=== PATIENT | male | born 1945 | race American Indian/Alaskan Native ===

== ENCOUNTER 2017-07-06 03:20 | Inpatient (IN) | payer MEDICARE ==
[2017-07-06] MEDS ORDERED: NACL 0.9% 1000 ML 1,000 ML IV ONE (03:35)
[2017-07-06 05:38] LABS: Basophils % (Auto) 0.3 % (0.0-1.8); Hematocrit 27.7 % (35.5-45.6); Hemoglobin 9.6 gm/dl (11.8-15.2); Lymphocytes # (Auto) 1.4 K/mm3 (1.2-5.4); Lymphocytes % (Auto) 14.5 % (13.4-35.0); Mean Corpuscular HGB Conc 35 % (32-34); Mean Corpuscular Hemoglobin 34 pg (28-32); Mean Corpuscular Volume 98 fl (84-94); Monocytes # (Auto) 0.3 K/mm3 (0.0-0.8); Monocytes % (Auto) 3.5 % (0.0-7.3); Platelet Count 161 K/mm3 (140-440); Red Blood Count 2.83 M/mm3 (3.65-5.03); Red Cell Distribution Width 13.2 % (13.2-15.2)
[2017-07-06 05:49] LABS: INR 3.32 (0.87-1.13)
[2017-07-06 05:50] LABS: Partial Thromboplastin Time 59.2 Sec. (24.2-36.6)
[2017-07-06 05:55] LABS: Albumin 3.6 g/dL (3.9-5)
--- NOTE | 2017-07-06 10:58 | Emergency Department Report ---
ED GI Bleed HPI - General Chief complaint: GI Bleed Stated complaint: POSS GI BLEED Time Seen by Provider: 07/06/17 10:16 Source: EMS Mode of arrival: Stretcher Limitations: Other (patient is nonverbal.) - History of Present Illness MD complaint: other (Black stool) -: unknown Radiation: none Severity scale (0 -10): 0 Quality: painless Improves with: none Worsens with: none Context: blood thinners Associated Symptoms: nausea, vomiting Treatments Prior to Arrival: none - Related Data Home Medications Medication Instructions Recorded Confirmed Last Taken Esomeprazole Magnesium [Nexium] 20 mg PO QAM 07/06/17 07/06/17 Unknown Sennosides [Senna] 17.2 mg PO QHS 07/06/17 07/06/17 Unknown Vit B Comp No.3/Folic/C/Biotin 1 each PO DAILY 07/06/17 07/06/17 Unknown [Nephro-Gabriel Rx Tablet] Warfarin Sodium [Coumadin] 7 mg PO QHS 07/06/17 07/06/17 Unknown Allergies Allergy/AdvReac Type Severity Reaction Status Date / Time No Known Allergies Allergy Verified 06/11/15 23:17 ED Review of Systems ROS: Stated complaint: POSS GI BLEED Other details as noted in HPI Comment: Unobtainable due to pts medical conditions (patient is nonverbal.) ED Past Medical Hx - Past Medical History Hx Hypertension: Yes Hx Deep Vein Thrombosis: No Hx Renal Disease: Yes (CKD) Hx Arthritis: Yes (GOUT) Hx Psychiatric Treatment: Yes (ANXIETY) Hx HIV: No Additional medical history: Enlarged prostate, ICH, GERD, STAGE 4 ULCER [place], V FIB, BUTTOCK PRESSURE ULCERS, APHASIA, UTI, ARF, BPH - Surgical History Past Surgical History?: Yes Hx Pacemaker: No Hx Internal Defibrillator: No Additional Surgical History: Gastrostomy, ileostomy - Social History Smoking Status: Never Smoker Substance Use Type: None - Medications Home Medications: Home Medications Medication Instructions Recorded Confirmed Last Taken Type Esomeprazole Magnesium [Nexium] 20 mg PO QAM 07/06/17 07/06/17 Unknown History Sennosides [Senna] 17.2 mg PO QHS 07/06/17 07/06/17 Unknown History Vit B Comp No.3/Folic/C/Biotin 1 each PO DAILY 07/06/17 07/06/17 Unknown History [Nephro-Gabriel Rx Tablet] Warfarin Sodium [Coumadin] 7 mg PO QHS 07/06/17 07/06/17 Unknown History ED Physical Exam - General Limitations: No Limitations General appearance: alert, in no apparent distress - Head Head exam: Present: atraumatic, normocephalic, normal inspection - Eye Eye exam: Present: EOMI, scleral icterus Pupils: Present: normal accommodation - ENT ENT exam: Present: normal exam - Neck Neck exam: Present: normal inspection, full ROM - Respiratory Respiratory exam: Present: normal lung sounds bilaterally - Cardiovascular Cardiovascular Exam: Present: regular rate, normal heart sounds - GI/Abdominal GI/Abdominal exam: Present: soft, other (colostomy bag is full of black stool). Absent: tenderness, guarding, rebound - Rectal Rectal exam: Present: deferred - Extremities Exam Extremities exam: Present: normal inspection, full ROM, normal capillary refill - Back Exam Back exam: Present: full ROM - Neurological Exam Neurological exam: Present: alert - Psychiatric Psychiatric exam: Present: normal affect - Skin Skin exam: Present: warm, dry, other (Stage 4 sacral decubitus ulcer.) ED Course Vital Signs 07/06/17 07/06/17 07/06/17 04:01 04:15 04:16 Temperature 97.7 F Pulse Rate 94 H Respiratory 16 16 Rate Blood Pressure 116/65 Blood Pressure 116/65 [Right] O2 Sat by Pulse 99 99 Oximetry 07/06/17 07/06/17 07/06/17 04:30 05:00 05:30 Temperature Pulse Rate 94 H Respiratory 26 H 21 16 Rate Blood Pressure 119/67 119/67 119/67 Blood Pressure [Right] O2 Sat by Pulse 100 100 96 Oximetry 07/06/17 07/06/17 07/06/17 06:00 06:30 07:30 Temperature Pulse Rate 80 95 H Respiratory 13 16 15 Rate Blood Pressure 125/60 100/42 116/56 Blood Pressure [Right] O2 Sat by Pulse 95 Oximetry 07/06/17 07/06/17 07/06/17 08:00 08:30 09:00 Temperature Pulse Rate 103 H Respiratory 18 14 20 Rate Blood Pressure 124/62 121/64 121/64 Blood Pressure [Right] O2 Sat by Pulse 71 L Oximetry 05/11/18 05/11/18 05/11/18 09:30 10:30 11:00 Temperature Pulse Rate 90 Respiratory 18 Rate Blood Pressure 126/63 133/53 138/55 Blood Pressure [Right] O2 Sat by Pulse Oximetry 07/06/17 07/06/17 07/06/17 11:30 12:00 12:30 Temperature Pulse Rate Respiratory 16 20 14 Rate Blood Pressure 135/49 108/82 129/60 Blood Pressure [Right] O2 Sat by Pulse Oximetry 07/06/17 13:01 Temperature Pulse Rate Respiratory 13 Rate Blood Pressure 129/64 Blood Pressure [Right] O2 Sat by Pulse Oximetry - Reevaluation(s) Reevaluation #1: 07/06/17 12:13 I consulted the [employer] hand compensation and benefits analyst Dr. Armando. He wants patient admitted to medicine. He wants patient kept nothing by mouth and 2 units of FFP given. He will come in and evaluated the patient later today. Reevaluation #2: 07/06/17 13:11 I discussed patient with the hospitalist on-call Dr. Sierra. He will admit patient to the hospital for further evaluation and management. ED Medical Decision Making - Lab Data Result diagrams: 07/06/17 05:10 07/06/17 05:10 - EKG Data -: EKG Interpreted by Me EKG shows normal: sinus rhythm Rate: normal - EKG Data When compared to previous EKG there are: previous EKG unavailable Interpretation: nonspecific ST-T wave meredith, LVH 07/06/17 10:58 RBBB, LPFB, First degree heart block. - Radiology Data Radiology results: report reviewed Critical care attestation.: If time is entered above; I have spent that time in minutes in the direct care of this critically ill patient, excluding procedure time. ED Disposition Clinical Impression: Coagulopathy, Supratherapeutic INR, Anemia due to acute blood loss GI bleed Qualifiers: GI bleed type/associated pathology: unspecified gastrointestinal hemorrhage type Qualified Code(s): K92.2 - Gastrointestinal hemorrhage, unspecified Hypotension Qualifiers: Hypotension type: other hypotension type Qualified Code(s): I95.89 - Other hypotension Disposition: OP ADMIT IP TO THIS HOSP Is pt being admited?: Yes Does the pt Need Aspirin: No Condition: Stable Referrals: PRIMARY CARE,MD [Primary Care Provider] - 3-5 Days Forms: Accompanied Note Time of Disposition: 12:13
[2017-07-06] MEDS ORDERED: PROTONIX IV ONE (11:10)
[2017-07-06] MEDS ORDERED: NACL 0.9% 500 ML 500 ML IV ONE (11:48)
[2017-07-06] MEDS ORDERED: PROTONIX 80 MG in NACL 0.9% 100 ML IV SCH (12:00)
--- NOTE | 2017-07-06 15:34 | Gastroenterology Consultation ---
History of Present Illness - Reason for Consult Consult date: 07/06/17 GI bleeding Requesting physician: BRIANA SAUCEDO - History of Present Illness The patient is a 72 year old man for whom consultation was requested for GI bleeding. He has been on warfarin for uncertain reasons as the history is limited due to his severe expressive aphasia. His INR was 3.6. The patient is lucid and intimates that he began passing a large amount of black stool in the ileostomy. He denies any pain, nausea or vomiting. The review of the chart reveals he was treated for PUD by Dr. Murray about 2 years ago. He was last admitted her a year ago at which time he had an SBO requiring surgery resulting in an ileostomy. The patient has renal failure and is on HD. Past History Past Medical History: ESRD (On hemodialysis), hypertension, stroke (history of hemorrhagic CVA) Past Surgical History: bowel surgery (Ileostomy in 2017 for SBO) Social history: denies: smoking, alcohol abuse Family history: other (Unknown.) Medications and Allergies Allergies Allergy/AdvReac Type Severity Reaction Status Date / Time No Known Allergies Allergy Verified 06/11/15 23:17 Home Medications Medication Instructions Recorded Confirmed Last Taken Type Esomeprazole Magnesium [Nexium] 20 mg PO QAM 07/06/17 07/06/17 Unknown History Sennosides [Senna] 17.2 mg PO QHS 07/06/17 07/06/17 Unknown History Vit B Comp No.3/Folic/C/Biotin 1 each PO DAILY 07/06/17 07/06/17 Unknown History [Nephro-Gabriel Rx Tablet] Warfarin Sodium [Coumadin] 7 mg PO QHS 07/06/17 07/06/17 Unknown History Active Meds: Active Medications Pantoprazole Sodium 80 mg/ (Sodium Chloride) 100 mls @ 10 mls/hr IV DIRECT ARTIS Review of Systems - Review of Systems ROS unobtainable: due to mental status (Unable to speak due to CVA with a dense expressive aphasia, although lucid) Exam - Constitutional Vital Signs: Temp Pulse Resp BP Pulse Ox 98.3 F 93 H 21 137/66 99 07/06/17 15:18 07/06/17 15:18 07/06/17 15:18 07/06/17 15:18 07/06/17 15:18 General appearance: no acute distress, well-nourished - EENT Eyes: PERRL ENT: hearing intact, clear oral mucosa - Neck Neck: supple, normal ROM, no masses or JVD - Respiratory Respiratory effort: normal Respiratory: bilateral: CTA - Breasts Breasts: deferred - Cardiovascular Rhythm: regular Heart Sounds: Present: S1 & S2. Absent: gallop, rub Extremities: pulses intact, No edema, normal color, Full ROM, abnormal (Left arm AV shunt) - Gastrointestinal General gastrointestinal: Present: soft, non-tender, non-distended, normal bowel sounds, other (Long midline scar. Ileostomy in RLQ with black stool present.). Absent: hepatomegaly, splenomegaly Rectal Exam: deferred - Genitourinary Male Genitourinary: deferred - Integumentary Integumentary: Present: clear, warm, dry - Neurologic Neurological: alert and oriented x3 - Psychiatric Psychiatric: appropriate mood/affect, intact judgment & insight, memory intact - Labs CBC & Chem 7: 07/06/17 05:10 07/06/17 05:10 Lab Results: Laboratory Results - last 24 hr 07/06/17 07/06/17 07/06/17 05:10 05:10 05:10 WBC 9.6 RBC 2.83 L Hgb 9.6 L Hct 27.7 L MCV 98 H MCH 34 H MCHC 35 H RDW 13.2 Plt Count 161 Lymph % (Auto) 14.5 [place] % (Auto) 3.5 Eos % (Auto) 0.0 Baso % (Auto) 0.3 Lymph # 1.4 [place] # 0.3 Eos # 0.0 Baso # 0.0 Seg Neutrophils % 81.7 H Seg Neutrophils # 7.8 H PT 36.1 H INR 3.32 H APTT 59.2 H Sodium 138 Potassium 5.0 Chloride 96.1 L Carbon Dioxide 26 Anion Gap 21 BUN 49 H Creatinine 3.7 H Estimated GFR 20 BUN/Creatinine Ratio 13 Glucose 145 H Calcium 9.0 Total Bilirubin 0.50 AST 16 ALT 12 Alkaline Phosphatase 84 Total Protein 6.6 Albumin 3.6 L Albumin/Globulin Ratio 1.2 Lipase 35 Blood Type Antibody Screen 07/06/17 05:10 WBC RBC Hgb Hct MCV MCH MCHC RDW Plt Count Lymph % (Auto) [place] % (Auto) Eos % (Auto) Baso % (Auto) Lymph # [place] # Eos # Baso # Seg Neutrophils % Seg Neutrophils # PT INR APTT Sodium Potassium Chloride Carbon Dioxide Anion Gap BUN Creatinine Estimated GFR BUN/Creatinine Ratio Glucose Calcium Total Bilirubin AST ALT Alkaline Phosphatase Total Protein Albumin Albumin/Globulin Ratio Lipase Blood Type O POSITIVE Antibody Screen Negative Assessment and Plan - Patient Problems (1) Anemia due to acute blood loss Current Visit: Yes Status: Acute (2) Coagulopathy Current Visit: Yes Status: Acute Plan to address problem: On coumadin (3) GI bleed Current Visit: Yes Status: Acute Qualifiers: GI bleed type/associated pathology: unspecified gastrointestinal hemorrhage type Qualified Code(s): K92.2 - Gastrointestinal hemorrhage, unspecified Plan to address problem: Will need EGD once INR decreases. FFP has been ordered by ER MD.His H&H is good and will be followed. He is hemodynamically stable at present. Keep NPO today. F/u PT/INR (4) Supratherapeutic INR Current Visit: Yes Status: Acute (5) Diabetes mellitus type 2 in nonobese Current Visit: No Status: Chronic (6) Expressive aphasia Current Visit: No Status: Chronic (7) History of intracranial hemorrhage Current Visit: No Status: Chronic
[2017-07-06 19:55] LABS: Hematocrit 26.4 % (35.5-45.6); Hemoglobin 8.9 gm/dl (11.8-15.2)
--- NOTE | 2017-07-06 21:41 | History and Physical Report ---
History of Present Illness Date of examination: 07/06/17 Date of admission: 07/06/17 13:13 Chief complaint: Chief complaint: Back stools in his ileostomy bag -one day History of present illness: History of Present Illness: 72-year-old -[place] male with history of cerebrovascular accident and aphasia comes in for large amount of black stool in his ileostomy bag. Positive for blood. His INR was 3.6 denies any pain nausea vomiting. Patient was here for vertigo symptoms disease by Dr. Murray 2 years ago patient. He also had a small bowel obstruction requiring surgery resulting in ileostomy. Patient is also on hemodialysis. No fever no chills. Past Medical History: ESRD (On hemodialysis), hypertension, stroke (history of hemorrhagic CVA) Past Surgical History: bowel surgery (Ileostomy in 2017 for SBO) Social history: denies: smoking, alcohol abuse Family history: other (Unknown.) Medications and Allergies Allergies Allergy/AdvReac Type Severity Reaction Status Date / Time No Known Allergies Allergy Verified 06/11/15 23:17 Home Medications Medication Instructions Recorded Confirmed Last Taken Type Esomeprazole Magnesium [Nexium] 20 mg PO QAM 07/06/17 07/06/17 Unknown History Sennosides [Senna] 17.2 mg PO QHS 07/06/17 07/06/17 Unknown History Vit B Comp No.3/Folic/C/Biotin 1 each PO DAILY 07/06/17 07/06/17 Unknown History [Nephro-Gabriel Rx Tablet] Warfarin Sodium [Coumadin] 7 mg PO QHS 07/06/17 07/06/17 Unknown History Active Meds: Active Medications Pantoprazole Sodium 80 mg/ (Sodium Chloride) 100 mls @ 10 mls/hr IV DIRECT ARTIS Review of Systems - Review of Systems ROS unobtainable: due to mental status (Unable to speak due to CVA with a dense expressive aphasia, although lucid) Past History Past Medical History: ESRD (On hemodialysis), hypertension, stroke (history of hemorrhagic CVA) Past Surgical History: bowel surgery (Ileostomy in 2017 for SBO) Social history: denies: smoking, alcohol abuse Family history: other (Unknown.) Medications and Allergies Allergies Allergy/AdvReac Type Severity Reaction Status Date / Time No Known Allergies Allergy Verified 06/11/15 23:17 Home Medications Medication Instructions Recorded Confirmed Last Taken Type Esomeprazole Magnesium [Nexium] 20 mg PO QAM 07/06/17 07/06/17 Unknown History Sennosides [Senna] 17.2 mg PO QHS 07/06/17 07/06/17 Unknown History Vit B Comp No.3/Folic/C/Biotin 1 each PO DAILY 07/06/17 07/06/17 Unknown History [Nephro-Gabriel Rx Tablet] Warfarin Sodium [Coumadin] 7 mg PO QHS 07/06/17 07/06/17 Unknown History Active Meds: Active Medications Pantoprazole Sodium 80 mg/ (Sodium Chloride) 100 mls @ 10 mls/hr IV DIRECT ARTIS Last Admin: 07/06/17 13:50 Dose: 8 mg/hr, 10 mls/hr Exam - Constitutional Vitals: Temp Pulse Resp BP Pulse Ox 97.9 F 94 H 18 130/49 99 07/06/17 20:05 07/06/17 20:05 07/06/17 20:05 07/06/17 20:05 07/06/17 20:05 General appearance: Present: no acute distress, well-nourished - EENT Eyes: Present: PERRL ENT: hearing intact, clear oral mucosa - Neck Neck: Present: supple, normal ROM - Respiratory Respiratory effort: normal Respiratory: bilateral: CTA - Cardiovascular Heart rate: 80 Rhythm: regular Heart Sounds: Present: S1 & S2. Absent: rub, click - Extremities Extremities: no ischemia, pulses intact, pulses symmetrical, No edema Peripheral Pulses: within normal limits - Abdominal General gastrointestinal: Present: soft, non-tender, non-distended, normal bowel sounds, other (ileostomy bag in place) Male genitourinary: Present: normal - Rectal Rectal Exam: deferred - Integumentary Integumentary: Present: clear, warm, dry - Musculoskeletal Musculoskeletal: gait normal, strength equal bilaterally - Psychiatric Psychiatric: appropriate mood/affect, intact judgment & insight - Neurologic Neurologic: CNII-XII intact, moves all extremities - Allied Health Allied health notes reviewed: nursing, case management Results - Labs CBC & Chem 7: 07/06/17 19:24 07/06/17 05:10 Labs: Laboratory Last Values WBC 9.6 K/mm3 (4.5-11.0) 07/06/17 05:10 RBC 2.83 M/mm3 (3.65-5.03) L 07/06/17 05:10 Hgb 8.9 gm/dl (11.8-15.2) L 07/06/17 19:24 Hct 26.4 % (35.5-45.6) L 07/06/17 19:24 MCV 98 fl (84-94) H 07/06/17 05:10 MCH 34 pg (28-32) H 07/06/17 05:10 MCHC 35 % (32-34) H 07/06/17 05:10 RDW 13.2 % (13.2-15.2) 07/06/17 05:10 Plt Count 161 K/mm3 (140-440) 07/06/17 05:10 Lymph % (Auto) 14.5 % (13.4-35.0) 07/06/17 05:10 [place] % (Auto) 3.5 % (0.0-7.3) 07/06/17 05:10 Eos % (Auto) 0.0 % (0.0-4.3) 07/06/17 05:10 Baso % (Auto) 0.3 % (0.0-1.8) 07/06/17 05:10 Lymph # 1.4 K/mm3 (1.2-5.4) 07/06/17 05:10 [place] # 0.3 K/mm3 (0.0-0.8) 07/06/17 05:10 Eos # 0.0 K/mm3 (0.0-0.4) 07/06/17 05:10 Baso # 0.0 K/mm3 (0.0-0.1) 07/06/17 05:10 Seg Neutrophils % 81.7 % (40.0-70.0) H 07/06/17 05:10 Seg Neutrophils # 7.8 K/mm3 (1.8-7.7) H 07/06/17 05:10 PT 36.1 Sec. (12.2-14.9) H 07/06/17 05:10 INR 3.32 (0.87-1.13) H 07/06/17 05:10 APTT 59.2 Sec. (24.2-36.6) H 07/06/17 05:10 Sodium 138 mmol/L (137-145) 07/06/17 05:10 Potassium 5.0 mmol/L (3.6-5.0) 07/06/17 05:10 Chloride 96.1 mmol/L (98-107) L 07/06/17 05:10 Carbon Dioxide 26 mmol/L (22-30) 07/06/17 05:10 Anion Gap 21 mmol/L 07/06/17 05:10 BUN 49 mg/dL (9-20) H 07/06/17 05:10 Creatinine 3.7 mg/dL (0.8-1.5) H 07/06/17 05:10 Estimated GFR 20 ml/min 07/06/17 05:10 BUN/Creatinine Ratio 13 % 07/06/17 05:10 Glucose 145 mg/dL (75-100) H 07/06/17 05:10 Calcium 9.0 mg/dL (8.4-10.2) 07/06/17 05:10 Total Bilirubin 0.50 mg/dL (0.1-1.2) 07/06/17 05:10 AST 16 units/L (5-40) 07/06/17 05:10 ALT 12 units/L (7-56) 07/06/17 05:10 Alkaline Phosphatase 84 units/L (35-129) 07/06/17 05:10 Total Protein 6.6 g/dL (6.3-8.2) 07/06/17 05:10 Albumin 3.6 g/dL (3.9-5) L 07/06/17 05:10 Albumin/Globulin Ratio 1.2 % 07/06/17 05:10 Lipase 35 units/L (13-60) 07/06/17 05:10 Blood Type O POSITIVE 07/06/17 05:10 Antibody Screen Negative 07/06/17 05:10 Short CBC 07/06/17 07/06/17 Range/Units 05:10 19:24 WBC 9.6 (4.5-11.0) K/mm3 Hgb 9.6 L 8.9 L (11.8-15.2) gm/dl Hct 27.7 L 26.4 L (35.5-45.6) % Plt Count 161 (140-440) K/mm3 BMP 07/06/17 05:10 Sodium 138 Potassium 5.0 Chloride 96.1 L Carbon Dioxide 26 BUN 49 H Creatinine 3.7 H Glucose 145 H Calcium 9.0 Liver Function 07/06/17 Range/Units 05:10 Total Bilirubin 0.50 (0.1-1.2) mg/dL AST 16 (5-40) units/L ALT 12 (7-56) units/L Alkaline Phosphatase 84 (35-129) units/L Albumin 3.6 L (3.9-5) g/dL Assessment and Plan Advance Directives: Yes (full code ) VTE prophylaxis?: Mechanical Plan of care discussed with patient/family: Yes (full code) - Patient Problems (1) GI bleed Current Visit: Yes Status: Acute Qualifiers: GI bleed type/associated pathology: unspecified gastrointestinal hemorrhage type Qualified Code(s): K92.2 - Gastrointestinal hemorrhage, unspecified Plan to address problem: Patient initiated on Protonix drip GI consult requested Hemoglobin and hematocrit every 8 Transfuse as necessary (2) Supratherapeutic INR Current Visit: Yes Status: Acute Plan to address problem: Will hold the Coumadin Vitamin K if necessary (3) End stage renal disease Current Visit: Yes Status: Chronic Plan to address problem: Nephrology consulted for possible dialysis (4) Peptic ulcer disease Current Visit: Yes Status: Chronic Plan to address problem: Continue PPIs after the endoscopy (5) Coagulopathy Current Visit: Yes Status: Acute Plan to address problem: We will hold the Coumadin (6) CVA, old, aphasia Current Visit: Yes Status: Chronic Plan to address problem: Supportive care (7) DVT prophylaxis Current Visit: Yes Status: Acute Plan to address problem: SCDs only
[2017-07-06] MEDS ORDERED: NACL 0.9% 1000 ML 1,000 ML IV SCH (22:00)
[2017-07-06 22:26] LABS: Hematocrit 23.5 % (35.5-45.6)
[2017-07-07 08:34] LABS: Hematocrit 22.6 % (35.5-45.6); Hemoglobin 7.7 gm/dl (11.8-15.2)
[2017-07-07 08:43] LABS: INR 2.36 (0.87-1.13)
[2017-07-07 08:47] LABS: Albumin 3.6 g/dL (3.9-5); Calcium 9.3 mg/dL (8.4-10.2)
--- NOTE | 2017-07-07 09:06 | Gastroenterology Progress Note ---
Assessment and Plan GI: no signs bleeding overnight - follow h/h, transfuse as needed - continue PPI iv - plan EGD in am if INR stable Subjective Date of service: 07/07/17 Interval history: - no signs bleeding overnight. Denies GI complaints Objective - Constitutional Vitals: Temp Pulse Resp BP Pulse Ox 98.4 F 84 18 129/54 100 07/07/17 03:29 07/07/17 03:29 07/07/17 03:29 07/07/17 03:29 07/07/17 03:29 General appearance: no acute distress - EENT Eyes: PERRL - Neck Neck: supple - Respiratory Respiratory: bilateral: CTA, rhonchi, wheezing, other - Cardiovascular Rhythm: regular Heart Sounds: Present: S1 & S2 - Gastrointestinal General gastrointestinal: Present: soft, non-tender, non-distended - Labs CBC & Chem 7: 07/07/17 08:03 07/07/17 08:03 Labs: Laboratory Results - last 24 hr 07/06/17 07/06/17 07/06/17 05:10 19:24 22:05 Hgb 8.9 L 8.0 L Hct 26.4 L 23.5 L PT INR Sodium Potassium Chloride Carbon Dioxide Anion Gap BUN Creatinine Estimated GFR BUN/Creatinine Ratio Glucose Calcium Total Bilirubin AST ALT Alkaline Phosphatase Total Protein Albumin Albumin/Globulin Ratio Blood Type O POSITIVE Antibody Screen Negative 07/07/17 07/07/17 07/07/17 08:03 08:03 08:03 Hgb 7.7 L Hct 22.6 L PT 27.4 H INR 2.36 H Sodium 138 Potassium 3.9 D Chloride 96.9 L Carbon Dioxide 24 Anion Gap 21 BUN 88 H Creatinine 4.7 H Estimated GFR 15 BUN/Creatinine Ratio 19 Glucose 116 H Calcium 9.3 Total Bilirubin 0.80 AST 13 ALT 9 Alkaline Phosphatase 73 Total Protein 6.7 Albumin 3.6 L Albumin/Globulin Ratio 1.2 Blood Type Antibody Screen
--- NOTE | 2017-07-07 09:15 | Progress Note ---
Assessment and Plan Assessment and plan: 72-year-old -U[place]and[place] male with history of cerebrovascular accident and aphasia comes in for large amount of black stool in his ileostomy bag. Positive for blood. His INR was 3.6 denies any pain nausea vomiting. Patient was here for vertigo symptoms disease by Dr. Murray 2 years ago patient. He also had a small bowel obstruction requiring surgery resulting in ileostomy. Patient is also on hemodialysis. No fever no chills. upper GI bleed Patient initiated on Protonix drip GI consult rappreciated, planned for EGD in am Hemoglobin and hematocrit every 8 Transfuse as necessary Supratherapeutic INR Will hold the Coumadin Vitamin K if necessary End stage renal disease Nephrology consulted for possible dialysis Peptic ulcer disease Continue PPIs after the endoscopy Coagulopathy due to meds We will hold the Coumadin Acute blood loss anemia monitor, transfuse to keep hg above 7 hx of CVA, old, aphasia Supportive care DVT prophylaxis SCDs only History Interval history: still has dark blackish output to colostomy Review of systems Constitutional: No fevers, no malaise, no joint pains CVS: No chest pain, no orthopnea, no dyspnea on exertion, no pedal edema GI: No abdominal pain, no diarrhea, no vomiting, no constipation Respiratory: No shortness of breath, no wheezing, no coughing Hospitalist Physical - Physical exam Narrative exam: General.: Appears well, no distress, nontoxic HEENT: Moist mucous membranes, extraocular muscles intact, no lymphadenopathy Neck: supple Cardiac: S1-S2 heard Lungs: clear to auscultation bilaterally Abdomen: soft , nontender, nondistended, bowel sounds positive Extremities: no edema clubbing or cyanosis Skin: no rash or lesions Neurologic: expressive aphasia Psych: appropriate behavior, appropriate mood, corporative, judgment intact - Constitutional Vitals: Temp Pulse Resp BP Pulse Ox 98.4 F 84 18 129/54 100 07/07/17 03:29 07/07/17 03:29 07/07/17 03:29 07/07/17 03:29 07/07/17 03:29 General appearance: Present: no acute distress, well-nourished Results - Labs CBC & Chem 7: 07/08/17 07:04 07/07/17 08:03 Labs: Laboratory Last Values WBC 9.6 K/mm3 (4.5-11.0) 07/06/17 05:10 RBC 2.83 M/mm3 (3.65-5.03) L 07/06/17 05:10 Hgb 7.7 gm/dl (11.8-15.2) L 07/07/17 08:03 Hct 22.6 % (35.5-45.6) L 07/07/17 08:03 MCV 98 fl (84-94) H 07/06/17 05:10 MCH 34 pg (28-32) H 07/06/17 05:10 MCHC 35 % (32-34) H 07/06/17 05:10 RDW 13.2 % (13.2-15.2) 07/06/17 05:10 Plt Count 161 K/mm3 (140-440) 07/06/17 05:10 Lymph % (Auto) 14.5 % (13.4-35.0) 07/06/17 05:10 [place] % (Auto) 3.5 % (0.0-7.3) 07/06/17 05:10 Eos % (Auto) 0.0 % (0.0-4.3) 07/06/17 05:10 Baso % (Auto) 0.3 % (0.0-1.8) 07/06/17 05:10 Lymph # 1.4 K/mm3 (1.2-5.4) 07/06/17 05:10 [place] # 0.3 K/mm3 (0.0-0.8) 07/06/17 05:10 Eos # 0.0 K/mm3 (0.0-0.4) 07/06/17 05:10 Baso # 0.0 K/mm3 (0.0-0.1) 07/06/17 05:10 Seg Neutrophils % 81.7 % (40.0-70.0) H 07/06/17 05:10 Seg Neutrophils # 7.8 K/mm3 (1.8-7.7) H 07/06/17 05:10 PT 27.4 Sec. (12.2-14.9) H 07/07/17 08:03 INR 2.36 (0.87-1.13) H 07/07/17 08:03 APTT 59.2 Sec. (24.2-36.6) H 07/06/17 05:10 Sodium 138 mmol/L (137-145) 07/07/17 08:03 Potassium 3.9 mmol/L (3.6-5.0) D 07/07/17 08:03 Chloride 96.9 mmol/L (98-107) L 07/07/17 08:03 Carbon Dioxide 24 mmol/L (22-30) 07/07/17 08:03 Anion Gap 21 mmol/L 07/07/17 08:03 BUN 88 mg/dL (9-20) H 07/07/17 08:03 Creatinine 4.7 mg/dL (0.8-1.5) H 07/07/17 08:03 Estimated GFR 15 ml/min 07/07/17 08:03 BUN/Creatinine Ratio 19 % 07/07/17 08:03 Glucose 116 mg/dL (75-100) H 07/07/17 08:03 Calcium 9.3 mg/dL (8.4-10.2) 07/07/17 08:03 Total Bilirubin 0.80 mg/dL (0.1-1.2) 07/07/17 08:03 AST 13 units/L (5-40) 07/07/17 08:03 ALT 9 units/L (7-56) 07/07/17 08:03 Alkaline Phosphatase 73 units/L (35-129) 07/07/17 08:03 Total Protein 6.7 g/dL (6.3-8.2) 07/07/17 08:03 Albumin 3.6 g/dL (3.9-5) L 07/07/17 08:03 Albumin/Globulin Ratio 1.2 % 07/07/17 08:03 Lipase 35 units/L (13-60) 07/06/17 05:10 Blood Type O POSITIVE 07/06/17 05:10 Antibody Screen Negative 07/06/17 05:10
--- NOTE | 2017-07-07 11:24 | Consultation ---
History of Present Illness - Reason for Consult Consult date: 07/07/17 acute renal failure - History of Present Illness Mr. Schneider is a 72yo with ESRD on HD TTS who presents to the ED complaint of black stools in ostomy. When asked about duration, he holds up 8 fingers, says yes to 8 days. He denies abdominal pain, nausea and vomiting. He reports feeling weak. He denies chest pain and SOB. He is unable to tell me the name of his starcher and tenter range feeder but says that he goes to dialysis today. Hb 9.6 declined to 7.7 this AM. INR 3.3 at admission. Patient is on coumadin. He is s/p FFP x 2 units Past History Past Medical History: ESRD (On hemodialysis), hypertension, stroke (history of hemorrhagic CVA) Past Surgical History: bowel surgery (Ileostomy in 2017 for SBO) Social history: denies: smoking, alcohol abuse Family history: other (Unknown.) Medications and Allergies Allergies Allergy/AdvReac Type Severity Reaction Status Date / Time No Known Allergies Allergy Verified 06/11/15 23:17 Home Medications Medication Instructions Recorded Confirmed Last Taken Type Esomeprazole Magnesium [Nexium] 20 mg PO QAM 07/06/17 07/06/17 Unknown History Sennosides [Senna] 17.2 mg PO QHS 07/06/17 07/06/17 Unknown History Vit B Comp No.3/Folic/C/Biotin 1 each PO DAILY 07/06/17 07/06/17 Unknown History [Nephro-Gabriel Rx Tablet] Warfarin Sodium [Coumadin] 7 mg PO QHS 07/06/17 07/06/17 Unknown History Active Meds: Active Medications Pantoprazole Sodium 80 mg/ (Sodium Chloride) 100 mls @ 10 mls/hr IV DIRECT ARTIS Last Admin: 07/06/17 13:50 Dose: 8 mg/hr, 10 mls/hr Sodium Chloride (Nacl 0.9% 1000 Ml) 1,000 mls @ 75 mls/hr IV DIRECT ARTIS Review of Systems All systems: negative Exam - Vital Signs Vital signs: Vital Signs BP 116/65 07/06/17 04:01 - General Appearance General appearance: well-developed, well-nourished EENT: ATNC Respiratory: Clear to Ascultation Heart: regular, S1S2 Gastrointestinal: Present: other (ostomy) Integumentary: no rash, cool/clammy Neurologic: other (expressive aphasia) Musculoskeletal: Present: other (no edema) Psychiatric: cooperative Results - Lab Results 07/07/17 08:03 07/07/17 08:03 Most recent lab results Calcium 9.3 mg/dL (8.4-10.2) 07/07/17 08:03 Assessment and Plan Impression: * ESRD on hemodialysis TTS * Melena * Anemia secondary to GI bleed * Hx of CVA, expressive aphasia * Chronic anticoagulation - s/p FFP x 2 units Plan: * Hemodialysis today - UF as tolerated; no heparin * Continue TTS schedule * Transfuse blood products prn * Epogen TIW prn * GI following - note plans for EGD in AM * Dose medications for renal function
[2017-07-07] MEDS ORDERED: NACL 0.9% 100 ML IV PRN (12:45)
[2017-07-07] MEDS ORDERED: NACL 0.9 (PRIMING MACHINE ONLY DIALYSIS) MC ONE (17:01)
[2017-07-07] MEDS: ALBURX 25% (ALBUMIN) IV PRN (17:23)
[2017-07-08 07:29] LABS: INR 2.44 (0.87-1.13)
[2017-07-08 07:35] LABS: Partial Thromboplastin Time 72.5 Sec. (24.2-36.6)
[2017-07-08 07:44] LABS: Basophils % (Auto) 0.5 % (0.0-1.8); Eosinophils % (Auto) 1.2 % (0.0-4.3); Hematocrit 21.2 % (35.5-45.6); Hemoglobin 7.4 gm/dl (11.8-15.2); Lymphocytes # (Auto) 1.8 K/mm3 (1.2-5.4); Lymphocytes % (Auto) 27.6 % (13.4-35.0); Mean Corpuscular HGB Conc 35 % (32-34); Mean Corpuscular Hemoglobin 35 pg (28-32); Mean Corpuscular Volume 100 fl (84-94); Mean Platelet Volume 7.9 fl (6-12); Monocytes # (Auto) 0.6 K/mm3 (0.0-0.8); Monocytes % (Auto) 9.5 % (0.0-7.3); Platelet Count 148 K/mm3 (140-440); Red Blood Count 2.13 M/mm3 (3.65-5.03); Red Cell Distribution Width 13.2 % (13.2-15.2)
[2017-07-08 07:45] LABS: Eosinophils # (Auto) 0.1 K/mm3 (0.0-0.4)
[2017-07-08] MEDS ORDERED: WATER FOR IRRIG STERILE IR ONE (08:28)
[2017-07-08] MEDS ORDERED: HURRICAINE ONE 20% TOPICAL SPRAY MM (08:36)
[2017-07-08] MEDS ORDERED: NACL 0.9% 1000 ML 1,000 ML ONE (08:36)
[2017-07-08] MEDS ORDERED: SUBLIMAZE ONE (08:37)
[2017-07-08] MEDS ORDERED: VERSED IV ONE (08:37)
--- NOTE | 2017-07-08 09:30 | Event Note ---
Date: 07/08/17 D/w GI, Dr. Orr, who needs informed consent co-signed for EGD due to dropping h/h, unable to reach NOK. Dr. Orr is aware on high INR. Patient appears to have cognitive impairment most likely Dementia when I spoke with him. He was unable to reach family. Also, I called the numbers in the chart. Brother, Kevin did not answer. Daughter Agustin Schneider also did not answer.
--- NOTE | 2017-07-08 09:45 | Event Note ---
Date: 07/08/17 - GI: pt w/o IV access and unable to perform procedure - follow labs, reverse co-agulopathy - if signs active bleeding will do later today otherwise will reschedule for am
--- NOTE | 2017-07-08 10:48 | Progress Note ---
Assessment and Plan Impression: * ESRD on hemodialysis TTS * Melena * Anemia secondary to GI bleed * Hx of CVA, expressive aphasia * Chronic anticoagulation - s/p FFP x 2 units Plan: * Hemodialysis TTS - UF as tolerated; no heparin * Transfuse blood products prn * Epogen TIW prn * GI following - note plans for EGD * Dose medications for renal function Subjective Date of service: 07/08/17 Interval history: No acute events overnight. Patient without complaint - doing "ok" Objective - Vital Signs Vital signs: Vital Signs - 12hr 07/08/17 07/08/17 07/08/17 01:19 01:22 08:30 Temperature 98.7 F 98.1 F Pulse Rate 94 H 94 H 91 H Respiratory 22 18 Rate Blood Pressure 126/64 Blood Pressure 109/55 [Right] O2 Sat by Pulse 100 98 Oximetry - General Appearance General appearance: well-developed, well-nourished EENT: ATNC Respiratory: Present: Clear to Ascultation Cardiology: regular, S1S2 Gastrointestinal: normal, no tenderness, no distended Integumentary: no rash Neurologic: no focal deficit Musculoskeletal: other (no edema) Psychiatric: cooperative - Lab 07/08/17 07:04 07/07/17 08:03 Most recent lab results Calcium 9.3 mg/dL (8.4-10.2) 07/07/17 08:03
--- NOTE | 2017-07-08 14:01 | Progress Note ---
Assessment and Plan Assessment and plan: 72-year-old -[place]itan[place] male with history of cerebrovascular accident and aphasia comes in for large amount of black stool in his ileostomy bag. Positive for blood. His INR was 3.6 denies any pain nausea vomiting. Patient was here for vertigo symptoms disease by Dr. Murray 2 years ago patient. He also had a small bowel obstruction requiring surgery resulting in ileostomy. Patient is also on hemodialysis. No fever no chills. upper GI bleed Patient initiated on Protonix drip GI consult rappreciated, planned for EGD in am Hemoglobin and hematocrit every 8 Transfuse as necessary Supratherapeutic INR Will hold the Coumadin Vitamin K if necessary End stage renal disease Nephrology consulted for possible dialysis Peptic ulcer disease Continue PPIs after the endoscopy Coagulopathy due to meds We will hold the Coumadin Acute blood loss anemia monitor, transfuse to keep hg above 7 hx of CVA, old, aphasia Supportive care DVT prophylaxis SCDs only History Interval history: still has dark blackish output to colostomy Review of systems Constitutional: No fevers, no malaise, no joint pains CVS: No chest pain, no orthopnea, no dyspnea on exertion, no pedal edema GI: No abdominal pain, no diarrhea, no vomiting, no constipation Respiratory: No shortness of breath, no wheezing, no coughing Hospitalist Physical - Physical exam Narrative exam: General.: Appears well, no distress, nontoxic HEENT: Moist mucous membranes, extraocular muscles intact, no lymphadenopathy Neck: supple Cardiac: S1-S2 heard Lungs: clear to auscultation bilaterally Abdomen: soft , nontender, nondistended, bowel sounds positive Extremities: no edema clubbing or cyanosis Skin: no rash or lesions Neurologic: expressive aphasia Psych: appropriate behavior, appropriate mood, corporative, judgment intact - Constitutional Vitals: Temp Pulse Resp BP Pulse Ox 98.1 F 91 H 18 126/64 98 07/08/17 08:30 07/08/17 08:30 07/08/17 08:30 07/08/17 08:30 07/08/17 08:30 General appearance: Present: no acute distress, well-nourished Results - Labs CBC & Chem 7: 07/08/17 07:04 07/07/17 08:03 Labs: Laboratory Last Values WBC 6.6 K/mm3 (4.5-11.0) 07/08/17 07:04 RBC 2.13 M/mm3 (3.65-5.03) L 07/08/17 07:04 Hgb 7.4 gm/dl (11.8-15.2) L 07/08/17 07:04 Hct 21.2 % (35.5-45.6) L 07/08/17 07:04 MCV 100 fl (84-94) H 07/08/17 07:04 MCH 35 pg (28-32) H 07/08/17 07:04 MCHC 35 % (32-34) H 07/08/17 07:04 RDW 13.2 % (13.2-15.2) 07/08/17 07:04 Plt Count 148 K/mm3 (140-440) 07/08/17 07:04 Lymph % (Auto) 27.6 % (13.4-35.0) 07/08/17 07:04 [place] % (Auto) 9.5 % (0.0-7.3) H 07/08/17 07:04 Eos % (Auto) 1.2 % (0.0-4.3) 07/08/17 07:04 Baso % (Auto) 0.5 % (0.0-1.8) 07/08/17 07:04 Lymph # 1.8 K/mm3 (1.2-5.4) 07/08/17 07:04 [place] # 0.6 K/mm3 (0.0-0.8) 07/08/17 07:04 Eos # 0.1 K/mm3 (0.0-0.4) 07/08/17 07:04 Baso # 0.0 K/mm3 (0.0-0.1) 07/08/17 07:04 Seg Neutrophils % 61.2 % (40.0-70.0) 07/08/17 07:04 Seg Neutrophils # 4.0 K/mm3 (1.8-7.7) 07/08/17 07:04 PT 28.1 Sec. (12.2-14.9) H 07/08/17 07:00 INR 2.44 (0.87-1.13) H 07/08/17 07:00 APTT 72.5 Sec. (24.2-36.6) H* 07/08/17 07:00 Sodium 138 mmol/L (137-145) 07/07/17 08:03 Potassium 3.9 mmol/L (3.6-5.0) D 07/07/17 08:03 Chloride 96.9 mmol/L (98-107) L 07/07/17 08:03 Carbon Dioxide 24 mmol/L (22-30) 07/07/17 08:03 Anion Gap 21 mmol/L 07/07/17 08:03 BUN 88 mg/dL (9-20) H 07/07/17 08:03 Creatinine 4.7 mg/dL (0.8-1.5) H 07/07/17 08:03 Estimated GFR 15 ml/min 07/07/17 08:03 BUN/Creatinine Ratio 19 % 07/07/17 08:03 Glucose 116 mg/dL (75-100) H 07/07/17 08:03 Calcium 9.3 mg/dL (8.4-10.2) 07/07/17 08:03 Total Bilirubin 0.80 mg/dL (0.1-1.2) 07/07/17 08:03 AST 13 units/L (5-40) 07/07/17 08:03 ALT 9 units/L (7-56) 07/07/17 08:03 Alkaline Phosphatase 73 units/L (35-129) 07/07/17 08:03 Total Protein 6.7 g/dL (6.3-8.2) 07/07/17 08:03 Albumin 3.6 g/dL (3.9-5) L 07/07/17 08:03 Albumin/Globulin Ratio 1.2 % 07/07/17 08:03 Lipase 35 units/L (13-60) 07/06/17 05:10 Blood Type O POSITIVE 07/06/17 05:10 Antibody Screen Negative 07/06/17 05:10
[2017-07-08] MEDS ORDERED: NACL 0.9% 500 ML 500 ML IV ONE (15:37)
[2017-07-09 08:28] LABS: INR 1.73 (0.87-1.13)
[2017-07-09 08:47] LABS: Partial Thromboplastin Time 65.5 Sec. (24.2-36.6)
--- NOTE | 2017-07-09 12:24 | Progress Note ---
Assessment and Plan Assessment and plan: 72-year-old -Australian male with history of cerebrovascular accident and aphasia comes in for large amount of black stool in his ileostomy bag. Positive for blood. His INR was 3.6 denies any pain nausea vomiting. Patient was here for vertigo symptoms disease by Dr. Murray 2 years ago patient. He also had a small bowel obstruction requiring surgery resulting in ileostomy. Patient is also on hemodialysis. No fever no chills. upper GI bleed Patient initiated on Protonix drip GI consult rappreciated, planned for EGD in am Hemoglobin and hematocrit every 8 Transfuse as necessary ---EGD was previously scheduled and IV blew and he lost IV access, difficult access, PICC line placed, for egd today Supratherapeutic INR Will hold the Coumadin Vitamin K if necessary End stage renal disease Nephrology consulted for possible dialysis Peptic ulcer disease Continue PPIs after the endoscopy Coagulopathy due to meds We will hold the Coumadin Acute blood loss anemia monitor, transfuse to keep hg above 7 hx of CVA, old, aphasia Supportive care DVT prophylaxis SCDs only History Interval history: still has dark blackish output to colostomy Review of systems Constitutional: No fevers, no malaise, no joint pains CVS: No chest pain, no orthopnea, no dyspnea on exertion, no pedal edema GI: No abdominal pain, no diarrhea, no vomiting, no constipation Respiratory: No shortness of breath, no wheezing, no coughing Hospitalist Physical - Physical exam Narrative exam: General.: Appears well, no distress, nontoxic HEENT: Moist mucous membranes, extraocular muscles intact, no lymphadenopathy Neck: supple Cardiac: S1-S2 heard Lungs: clear to auscultation bilaterally Abdomen: soft , nontender, nondistended, bowel sounds positive Extremities: no edema clubbing or cyanosis Skin: no rash or lesions Neurologic: expressive aphasia Psych: appropriate behavior, appropriate mood, corporative, judgment intact - Constitutional Vitals: Temp Pulse Resp BP Pulse Ox 98.3 F 87 20 140/60 97 07/09/17 04:52 07/09/17 04:52 07/09/17 04:52 07/09/17 04:52 07/09/17 04:52 General appearance: Present: no acute distress, well-nourished Results - Labs CBC & Chem 7: 07/08/17 07:04 07/07/17 08:03 Labs: Laboratory Last Values WBC 6.6 K/mm3 (4.5-11.0) 07/08/17 07:04 RBC 2.13 M/mm3 (3.65-5.03) L 07/08/17 07:04 Hgb 7.4 gm/dl (11.8-15.2) L 07/08/17 07:04 Hct 21.2 % (35.5-45.6) L 07/08/17 07:04 MCV 100 fl (84-94) H 07/08/17 07:04 MCH 35 pg (28-32) H 07/08/17 07:04 MCHC 35 % (32-34) H 07/08/17 07:04 RDW 13.2 % (13.2-15.2) 07/08/17 07:04 Plt Count 148 K/mm3 (140-440) 07/08/17 07:04 Lymph % (Auto) 27.6 % (13.4-35.0) 07/08/17 07:04 [place] % (Auto) 9.5 % (0.0-7.3) H 07/08/17 07:04 Eos % (Auto) 1.2 % (0.0-4.3) 07/08/17 07:04 Baso % (Auto) 0.5 % (0.0-1.8) 07/08/17 07:04 Lymph # 1.8 K/mm3 (1.2-5.4) 07/08/17 07:04 [place] # 0.6 K/mm3 (0.0-0.8) 07/08/17 07:04 Eos # 0.1 K/mm3 (0.0-0.4) 07/08/17 07:04 Baso # 0.0 K/mm3 (0.0-0.1) 07/08/17 07:04 Seg Neutrophils % 61.2 % (40.0-70.0) 07/08/17 07:04 Seg Neutrophils # 4.0 K/mm3 (1.8-7.7) 07/08/17 07:04 PT 21.3 Sec. (12.2-14.9) H 07/09/17 07:53 INR 1.73 (0.87-1.13) H 07/09/17 07:53 APTT 65.5 Sec. (24.2-36.6) H* 07/09/17 07:53 Sodium 138 mmol/L (137-145) 07/07/17 08:03 Potassium 3.9 mmol/L (3.6-5.0) D 07/07/17 08:03 Chloride 96.9 mmol/L (98-107) L 07/07/17 08:03 Carbon Dioxide 24 mmol/L (22-30) 07/07/17 08:03 Anion Gap 21 mmol/L 07/07/17 08:03 BUN 88 mg/dL (9-20) H 07/07/17 08:03 Creatinine 4.7 mg/dL (0.8-1.5) H 07/07/17 08:03 Estimated GFR 15 ml/min 07/07/17 08:03 BUN/Creatinine Ratio 19 % 07/07/17 08:03 Glucose 116 mg/dL (75-100) H 07/07/17 08:03 Calcium 9.3 mg/dL (8.4-10.2) 07/07/17 08:03 Total Bilirubin 0.80 mg/dL (0.1-1.2) 07/07/17 08:03 AST 13 units/L (5-40) 07/07/17 08:03 ALT 9 units/L (7-56) 07/07/17 08:03 Alkaline Phosphatase 73 units/L (35-129) 07/07/17 08:03 Total Protein 6.7 g/dL (6.3-8.2) 07/07/17 08:03 Albumin 3.6 g/dL (3.9-5) L 07/07/17 08:03 Albumin/Globulin Ratio 1.2 % 07/07/17 08:03 Lipase 35 units/L (13-60) 07/06/17 05:10 Blood Type O POSITIVE 07/06/17 05:10 Antibody Screen Negative 07/06/17 05:10
[2017-07-09] MEDS ORDERED: XYLOCAINE MPF 2% ONE (14:30)
[2017-07-09] MEDS ORDERED: NACL 0.9% 1000 ML 1,000 ML ONE (14:41)
--- NOTE | 2017-07-09 14:59 | Anesthesia Day of Surgery ---
Anesthesia Day of Surgery - Day of Surgery Patient Examined: Yes Patient H&P Reviewed: Yes Patient is NPO: Yes
--- NOTE | 2017-07-09 14:59 | Anesthesia Consultation ---
Anesthesia Consult and Med Hx Date of service: 07/09/17 - Airway Anesthetic Teeth Evaluation: Poor, Edentulous ROM Head & Neck: Adequate Mental/Hyoid Distance: Adequate Mallampati Class: Class II - Pre-Operative Health Status ASA Pre-Surgery Classification: ASA3 Proposed Anesthetic Plan: MAC - Cardiovascular System Hx Hypertension: Yes Hx Pacemaker: No Hx Internal Defibrillator: No Hx Heart Murmur: Yes - Central Nervous System CVA: Yes Hx Psychiatric Problems: No (dementia, some degree of motor aphasia) - Gastrointestinal Hx Ulcer: Yes - Endocrine Hx Renal Disease: Yes (CKD) Hx End Stage Renal Disease: Yes Hx Non-Insulin Dependent Diabetes: Yes - Additional Comments Anesthesia Medical History Comments: GI bleed
[2017-07-09] MEDS ORDERED: DIPRIVAN 10 MG/ML IV ONE (15:02)
--- NOTE | 2017-07-09 16:32 | Post Operative Note ---
Pre-op diagnosis: gi bleed Post-op diagnosis: same Findings: EGD: hiatal hernia - otherwise normal esophagus - mild gastritis (bx's) - 4 mm vascular appearing lesion proximal gastric body, APC applied w/ bleeding from this area that was itself treated w/ APC (jurgen) - previous PUD noted duodenum Procedure: EGD Anesthesia: MAC Surgeon: MANUEL GROVER Estimated blood loss: none Specimen disposition: to lab Condition: stable Disposition: floor
--- NOTE | 2017-07-09 17:54 | Progress Note ---
Subjective Interval history: Patient was seen today for follow-up, on many renal related issues, today around 4:15 in the afternoon Patient currently denies having any symptoms of chest pain pressure shortness of breath Better aware about renal related issues Interdisciplinary notes were reviewed Vitals labs intake and output medications were reviewed from today Allergies: Reviewed Social history: Reviewed Family history: Reviewed Physical examination HEENT: Oral mucosa moist no pharyngeal erythema Neck: Supple no JVD Chest: Clear to auscultation no crackles rales or wheezes Heart: Regular rate and rhythm S1-S2 heard no S3-S4 Abdomen: Soft nontender no renal bruit no CVA tenderness no suprapubic fullness Extremity: Mild edema dry skin no peripheral cyanosis pulses palpable Neurological: Alert awake Musculoskeletal: No joint effusion noted Assessment and plan End-stage renal disease patient is currently on maintenance dialysis on Sunday tolerating dialysis treatment fairly well Secondary hyperparathyroidism: To monitor phosphorus and PTH level periodically Malnutrition risk: High consider high-protein diet Anemia: Admitted with GI bleed, being followed by gastroenterology service/ has had black stools in the ostomy patient needs follow-up on hemoglobin and hematocrit Hypertension: To monitor and follow to keep systolic blood pressure under 150 Anemia and end-stage renal disease: Patient is currently on erythropoietin 20, 000 units with hemodialysis prior history of stroke hemorrhagic Bowel surgery status post ileostomy for a small bowel obstruction 2016 Patient was on anticoagulation with Coumadin and has had drop in hemoglobin We will order for phosphorus and PTH level in the morning Adequately counseled and educated regarding all the renal related issues Will continue to follow and make recommendation from renal standpoint Objective - Vital Signs Vital signs: Vital Signs - 12hr 07/09/17 07/09/17 07/09/17 14:50 15:27 15:43 Temperature 98.3 F 98.1 F Pulse Rate 81 73 85 Respiratory 16 16 14 Rate Blood Pressure 136/72 143/52 130/51 O2 Sat by Pulse 95 95 Oximetry 07/09/17 16:05 Temperature Pulse Rate 68 Respiratory 16 Rate Blood Pressure 132/53 O2 Sat by Pulse 100 Oximetry - Lab 07/08/17 07:04 07/07/17 08:03 Most recent lab results Calcium 9.3 mg/dL (8.4-10.2) 07/07/17 08:03
--- NOTE | 2017-07-09 22:22 | Operative Report ---
INDICATION: 1. Anemia. 2. Gastrointestinal bleed. MEDICATIONS: Propofol per COMMUTATOR OPERATOR. COMPLICATIONS: None. DESCRIPTION OF PROCEDURE: The patient was brought to procedure suite. The patient had a procedure discussed with his family at length. All risks, complications, and benefits were discussed after which consent was gotten for the procedure to be performed. The patient was placed in left lateral decubitus position. Mouth block was placed in the patient's oral cavity. After adequate sedation medication as above, endoscope placed in the mouth and brought to level of the second portion of duodenum. Retroflexion view performed. The patient's vital signs remained stable throughout the procedure. FINDINGS: There was noted to be a small hiatal hernia at GE junction at 38 cm from the gums. Esophagus otherwise appeared to be normal. There was mild antral gastritis noted. Biopsies were taken and sent to pathology. In the proximal gastric body just beyond the fundus, there was noted to be of approximately 4 mm vascular appearing lesion with some erythema around it. This raised the possibility of an AVM or a Dieulafoy lesion. Looking at the lesion, it looked like an AVM. The stomach otherwise appeared normal. There was a sign of a previous 8 mm ulcer with mild scarring noted in duodenal bulb and a small 4 mm white based ulcer. The duodenum otherwise appeared to be normal. Retroflexion view performed in the stomach showed no other pathology other than noted above. After this inspection, APC was applied to the vascular appearing lesion in the proximal gastric body. There was noticeable bleeding from that area when it was initially zapped with APC and bleeding therapy using APC itself was applied with good result. This may have been the patient's source of bleeding. No further interventions were performed. The patient tolerated the procedure well. No complications during the procedure. IMPRESSION: 1. Hiatal hernia. 2. Otherwise, normal esophagus. 3. Gastritis, biopsy performed. 4. 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 5. Signs of previous peptic ulcer disease in the duodenum. RECOMMENDATIONS: 1. Follow up biopsies. 2. PPI daily. 3. Advance diet. 4. If H and H are stable in a.m., okay to discharge from GI standpoint. JOB# [id number] [facility]
--- NOTE | 2017-07-10 09:04 | Progress Note ---
Subjective Interval history: Patient was seen today for follow-up, on many renal related issues, Denies any complaints today Events of 24 hours noted Vitals labs intake and output medications were reviewed from today Allergies: Reviewed Social history: Reviewed Family history: Reviewed Physical examination HEENT: Oral mucosa moist no pharyngeal erythema Neck: Supple no JVD Chest: Clear to auscultation no crackles rales or wheezes Heart: Regular rate and rhythm S1-S2 heard no S3-S4 Abdomen: Soft nontender no renal bruit no CVA tenderness no suprapubic fullness Extremity: Mild edema dry skin no peripheral cyanosis pulses palpable Neurological: Alert awake Musculoskeletal: No joint effusion noted Assessment and plan End-stage renal disease patient is currently on maintenance dialysis on Sunday tolerating dialysis treatment fairly well , continue to follow on hemodialysis Patient needs a CBC, PTH phosphorus level today Patient does not require IV fluid Malnutrition risk: High consider high-protein diet , nutritional consultation would be helpful Anemia: Admitted with GI bleed, being followed by gastroenterology service/ has had black stools in the ostomy patient needs follow-up on hemoglobin and hematocrit Hypertension: To monitor and follow to keep systolic blood pressure under 150, blood pressure is currently well controlled Anemia and end-stage renal disease: Patient is currently on erythropoietin 20, 000 units with hemodialysis prior history of stroke hemorrhagic Bowel surgery status post ileostomy for a small bowel obstruction 2016 Patient was on anticoagulation with Coumadin and has had drop in hemoglobin, INR currently under 2 We will order for phosphorus and PTH level in the morning Adequately counseled and educated regarding all the renal related issues Will continue to follow and make recommendation from renal standpoint Objective - Vital Signs Vital signs: Vital Signs - 12hr 07/09/17 07/09/17 07/10/17 22:00 23:49 05:37 Temperature 98.9 F 98.4 F Pulse Rate 82 84 86 Respiratory 18 16 22 Rate Blood Pressure 139/63 134/62 O2 Sat by Pulse 100 98 Oximetry - Lab 07/08/17 07:04 07/07/17 08:03 Most recent lab results Calcium 9.3 mg/dL (8.4-10.2) 07/07/17 08:03
[2017-07-10 09:57] LABS: Hematocrit 22.4 % (35.5-45.6); Hemoglobin 7.7 gm/dl (11.8-15.2); Mean Corpuscular HGB Conc 34 % (32-34); Mean Corpuscular Hemoglobin 34 pg (28-32); Mean Corpuscular Volume 100 fl (84-94); Platelet Count 194 K/mm3 (140-440); Red Blood Count 2.24 M/mm3 (3.65-5.03); Red Cell Distribution Width 13.6 % (13.2-15.2)
--- NOTE | 2017-07-10 11:22 | Gastroenterology Progress Note ---
Assessment and Plan 1.GI bleed -HGB 7.7-stable -continue to monitor H/H and transfuse as needed -no active signs of bleeding overnight or this am -s/p EGD that revealed a hiatal hernia, mild gastritis (bx results pending-f/u in clinic), evidence of previous PUD in duodenum, and a 4mm vascular appearing lesion proximal gastric body (treated with APC) -clinically pt is stable w/o GI complaints and tolerating diet -continue daily PPI and supportive care -pt okay to be d/c per GI standpoint with follow up clinic appt in 2 weeks -will sign off, please call if needed Subjective Date of service: 07/10/17 Principal diagnosis: GI bleed Interval history: Patient w/o distress. No active signs of bleeding overnight or this am. Denies abd pain or N/V. Tolerating diet. Objective - Constitutional Vitals: Temp Pulse Resp BP Pulse Ox 98.4 F 86 22 134/62 98 07/10/17 05:37 07/10/17 05:37 07/10/17 05:37 07/10/17 05:37 07/10/17 05:37 General appearance: no acute distress - Respiratory Respiratory: bilateral: CTA - Cardiovascular Rhythm: regular Heart Sounds: Present: S1 & S2 - Gastrointestinal General gastrointestinal: Present: soft, non-tender, non-distended, normal bowel sounds, other (ileostomy with green stool) - Labs CBC & Chem 7: 07/10/17 09:29 07/07/17 08:03 Labs: Laboratory Results - last 24 hr 07/08/17 07/10/17 08:56 09:29 WBC 4.2 L RBC 2.24 L Hgb 7.7 L Hct 22.4 L MCV 100 H MCH 34 H MCHC 34 RDW 13.6 Plt Count 194 POC Glucose 117 H
[2017-07-10] MEDS ORDERED: NACL 0.9 (PRIMING MACHINE ONLY DIALYSIS) MC ONE (11:29)
[2017-07-10] MEDS ORDERED: PROTONIX PO SCH (12:00)
[2017-07-10] MEDS: ALBURX 25% (ALBUMIN) IV PRN (12:26)
--- NOTE | 2017-07-10 16:10 | Discharge Summary ---
Providers - Providers Date of Admission: 07/06/17 13:13 Date of discharge: 07/11/17 Attending physician: RADHA GRAJEDA 07/06/17 12:41 Consult to Physician [CONS] Stat Comment: Consulting Provider: ANNE MARIE FERGUSON Physician Instructions: Reason For Exam: gastrointestinal bleed 07/06/17 21:55 Consult to Physician [CONS] Routine Comment: Consulting Provider: JAMES FAIR Physician Instructions: Reason For Exam: esrd Primary care physician: ROCK SPLITTER Hospitalization Condition: Stable Hospital course: 72-year-old -[place] male with history of ESRD on HD, cerebrovascular accident and aphasia, h/o small bowel obstruction requiring surgery resulting in ileostomy came in for large amount of black stool in his ileostomy bag and that was Positive for blood. His INR was 3.6 and denied any pain nausea vomiting on admission. He was admitted for further evaluation and management. Discharge diagnosis and management: /Upper GI bleed Patient was initiated on Protonix drip GI consulted. s/p EGD on 07/09 Hemoglobin and hematocrit monitored and remained stable - EGD revealed a hiatal hernia, mild gastritis (bx results pending-f/u in clinic ), evidence of previous PUD in duodenum, and a 4mm vascular appearing lesion proximal gastric body (treated with APC) -clinically pt is stable w/o GI complaints and tolerating diet -will continue daily PPI and supportive care -Will follow up GI clinic appt in 2 weeks /Supratherapeutic INR Needed FFP to reverse INR Held the Coumadin in the light of GI bleed, resumed on discharge /End stage renal disease Nephrology consulted for dialysis /Peptic ulcer disease Continue PPIs /Acute blood loss anemia monitored, H/h stable on discharge /hx of CVA, old, aphasia Supportive care /DVT prophylaxis SCDs only Hospitalist Physical General.: Appears well, no distress, nontoxic HEENT: Moist mucous membranes, extraocular muscles intact, no lymphadenopathy Neck: supple Cardiac: S1-S2 heard Lungs: clear to auscultation bilaterally Abdomen: soft , nontender, nondistended, bowel sounds positive Extremities: no edema clubbing or cyanosis Skin: no rash or lesions Neurologic: expressive aphasia Psych: corporative, Disposition: - TO HOME OR SELFCARE Time spent for discharge: 34 minutes Core Measure Documentation - Palliative Care Palliative Care/ Comfort Measures: Not Applicable - Core Measures Any of the following diagnoses?: history only Exam - Constitutional Vitals: Temp Pulse Resp BP Pulse Ox 98.2 F 94 H 18 144/65 98 07/10/17 14:40 07/10/17 14:40 07/10/17 14:40 07/10/17 14:40 07/10/17 05:37 Plan Activity: fall precautions Weight Bearing Status: Non-Weight Bearing Diet: low fat, low salt, renal Additional Instructions: f/u with GI in 2 weeks for pending biopsy result Follow up with: PRIMARY CAREMD [Primary Care Provider] - 3-5 Days Forms: Accompanied Note
--- NOTE | 2017-07-11 09:29 | Progress Note ---
Subjective Principal diagnosis: GI bleed Interval history: Patient was seen today for follow-up, regarding multiple renal related issues Events of 24 hours were noted Patient denies any complaints of chest pain pressure or shortness of breath Interdisciplinary Notes were also reviewed from past 24 hours Vitals labs intake output medications: Reviewed Past medical history: Reviewed Allergies: Reviewed Social history: Reviewed Family history: Reviewed Physical examination Gen.: No acute distress HEENT: Mild pallor nor icterus no uremic order Neck: Supple without any mass or JVD Chest: Clear to auscultation anteriorly Heart: Regular rate and rhythm S1 and S2 heard Abdomen: Soft nontender no suprapubic fullness no masses no renal bruit Extremity: Edema , no peripheral cyanosis Skin: No petechial rashes dry skin Assessment and plan End-stage renal disease: Patient is tolerating hemodialysis treatment fairly well, upon discharge will need to continue with hemodialysis treatment outpatient setting Anemia in end-stage renal disease complicated by GI bleed status post GI evaluation patient will need to follow-up with them in the next 2-3 weeks continue to monitor hemoglobin and 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 Hypertension blood pressure is satisfactorily controlled Secondary hyperparathyroidism may need to check phosphorus and PTH level, patient advised to keep phosphorus under 5 Current hemoglobin 7.7, potassium 3.9 Patient advised to stay with high protein diet as there is evidence of malnutrition prior to admission Overall stable from renal standpoint Had a detailed discussion with patient about renal care plan, We'll continue to follow and make recommendation from renal standpoint Objective - Vital Signs Vital signs: Vital Signs - 12hr 07/10/17 07/10/17 07/11/17 22:00 23:47 05:29 Temperature 98.1 F 97.9 F Pulse Rate 95 H 82 Respiratory 16 18 18 Rate Blood Pressure 120/74 126/58 O2 Sat by Pulse 98 90 Oximetry - Lab 07/10/17 09:29 07/07/17 08:03 Most recent lab results Calcium 9.3 mg/dL (8.4-10.2) 07/07/17 08:03
[2017-07-11 11:46] VITALS: BP 123/59
--- NOTE | 2017-07-11 13:21 | Progress Note ---
Assessment and Plan /Upper GI bleed Patient was initiated on Protonix drip GI consulted. s/p EGD on 07/09 Hemoglobin and hematocrit monitored and remained stable - EGD revealed a hiatal hernia, mild gastritis (bx results pending-f/u in clinic ), evidence of previous PUD in duodenum, and a 4mm vascular appearing lesion proximal gastric body (treated with APC) -clinically pt is stable w/o GI complaints and tolerating diet -will continue daily PPI and supportive care -Will follow up GI clinic appt in 2 weeks /Supratherapeutic INR Held the Coumadin in the light of GI bleed /End stage renal disease Nephrology consulted for dialysis /Peptic ulcer disease Continue PPIs /Acute blood loss anemia monitor, transfuse to keep hg above 7 /hx of CVA, old, aphasia Supportive care /DVT prophylaxis SCDs only Hospitalist Physical General.: Appears well, no distress, nontoxic HEENT: Moist mucous membranes, extraocular muscles intact, no lymphadenopathy Neck: supple Cardiac: S1-S2 heard Lungs: clear to auscultation bilaterally Abdomen: soft , nontender, nondistended, bowel sounds positive Extremities: no edema clubbing or cyanosis Skin: no rash or lesions Neurologic: expressive aphasia Psych: appropriate behavior, appropriate mood, corporative, judgment intact Subjective Date of service: 07/10/17 Principal diagnosis: GI bleed Interval history: Pt seen and examined Getting HD now, no acute event O/N Tolerating diet, no bloody stool in the colostomy bag D/c back to SNF in the am Objective - Constitutional Vitals: Vital Signs - 12hr 07/11/17 07/11/17 07/11/17 05:29 07:51 10:00 Temperature 97.9 F 97.6 F Pulse Rate 82 81 Pulse Rate [ 94 H Left Radial] Pulse Rate [ 94 H Right Radial] Respiratory 18 18 20 Rate Blood Pressure 126/58 123/59 O2 Sat by Pulse 90 97 97 Oximetry - Labs CBC & Chem 7: 07/10/17 09:29 07/07/17 08:03
== END 2017-07-11 12:14 | disposition home or self-care (01) | DRG 377 ==
LOC: ED 03:20 → 4A 13:13
PROVIDERS: ADMIT Internal Medicine; ATTEND Internal Medicine
PROC: 30233L1 Transfusion of Nonautologous Fresh Plasma into Peripheral Vein, Percutaneous Approach (ICD-10-PCS; 2017-07-06)
PROC: 30233K1 Transfusion of Nonautologous Frozen Plasma into Peripheral Vein, Percutaneous Approach (ICD-10-PCS; 2017-07-06)
PROC: 5A1D70Z Performance of Urinary Filtration, Intermittent, Less than 6 Hours Per Day (ICD-10-PCS; 2017-07-07)
PROC: 0DB68ZX Excision of Stomach, Via Natural or Artificial Opening Endoscopic, Diagnostic (ICD-10-PCS; principal; 2017-07-10)
PROC: 5A1D70Z Performance of Urinary Filtration, Intermittent, Less than 6 Hours Per Day (ICD-10-PCS; 2017-07-10)
PROC: 0W3P8ZZ Control Bleeding in Gastrointestinal Tract, Via Natural or Artificial Opening Endoscopic (ICD-10-PCS; 2017-07-10)
DX: K29.71 Gastritis, unspecified, with bleeding (principal); N18.6 End stage renal disease; D62 Acute posthemorrhagic anemia; D68.9 Coagulation defect, unspecified; R47.01 Aphasia; N25.81 Secondary hyperparathyroidism of renal origin; E46 Unspecified protein-calorie malnutrition; I12.0 Hypertensive chronic kidney disease with stage 5 chronic kidney disease or end stage renal disease; E11.22 Type 2 diabetes mellitus with diabetic chronic kidney disease; M10.9 Gout, unspecified; F41.9 Anxiety disorder, unspecified; N40.0 Benign prostatic hyperplasia without lower urinary tract symptoms; I95.9 Hypotension, unspecified; K44.9 Diaphragmatic hernia without obstruction or gangrene; Z99.2 Dependence on renal dialysis; Z88.8 Allergy status to other drugs, medicaments and biological substances; Z79.01 Long term (current) use of anticoagulants; Z87.440 Personal history of urinary (tract) infections; Z87.11 Personal history of peptic ulcer disease; Z86.73 Personal history of transient ischemic attack (TIA), and cerebral infarction without residual deficits; Z68.26 Body mass index [BMI] 26.0-26.9, adult; K26.4 Chronic or unspecified duodenal ulcer with hemorrhage; Q27.33 Arteriovenous malformation of digestive system vessel; I95.89 Other hypotension
CPT/HCPCS: 36415; 80053; 82962; 83690; 85014; 85018; 85025; 85027; 85610; 85730; 86850; 86900; 86901; 88305; 88342; 93005; 93010; 99285; C9113; J0885; J2250; J2704; J3010; J7030; J7040; P9017; P9047